=== PATIENT | female | born 1940 | race Caucasian/White ===

== ENCOUNTER → 2019-06-10 | Emergency (ER) | payer MEDICARE, BC, OTHER | LOC: ER FS 14:01 ==

== ENCOUNTER 2020-08-05 09:01 | Emergency (ER) | payer MEDICARE ==
[~2020-08-05] VITALS: Ht 160 cm; Wt 104.3 kg
[~2020-08-05 09:01] MED LIST: AMLO-251; APIX5TAB; ATOR20TA66; CHLO10CA6; LOSA100T3; LOSA100T57; METO100T12; SIMV40TA25; SPIR25TA5
--- NOTE | 2020-08-05 09:19 | ED General ---
General Chief Complaint: Trauma-Non Activation Stated Complaint: FALL Source of Information: Patient, EMS Exam Limitations: No Limitations History of Present Illness Date Seen by Provider: Aug 05, 2020 Time Seen by Provider: 09:10 Initial Comments Patient is a 79-year-old female who presents to the emergency department today with a chief complaint of fall and hitting her head. Patient was stepping up on a stepstool to pull some curtains back when she stepped backwards and fell 1 step off of a small step ladder. She fell onto a carpeted floor and hit her head. Patient denies any loss of consciousness. She states that she got a little dizzy and nauseated when the paramedics got her up and onto the stretcher. She denies any vision changes or hearing changes at this time, no numbness, weakness or tingling on any of her extremities. She did not injure her neck and complains of no neck pain. All other review of systems reviewed and negative except as stated. Timing/Duration: 1/2 Hour Severity: Mild Allergies and Home Medications Allergies Coded Allergies: Sulfa (Sulfonamide Antibiotics) (Verified Allergy, Unknown, rash, 06/10/19) atorvastatin (Verified Allergy, Unknown, muscle pain, 06/10/19) baclofen (Verified Allergy, Unknown, delirium, 06/10/19) hydrochlorothiazide (Verified Allergy, Unknown, rash, 06/10/19) raloxifene (Verified Allergy, Unknown, swelling, 06/10/19) Patient Home Medication List Home Medication List Reviewed: Yes Review of Systems Review of Systems Constitutional: dizziness (Resolved) EENTM: no symptoms reported Respiratory: no symptoms reported Cardiovascular: no symptoms reported Gastrointestinal: no symptoms reported Genitourinary: no symptoms reported Musculoskeletal: no symptoms reported Skin: no symptoms reported Psychiatric/Neurological: No Symptoms Reported; Denies Headache, Denies Paresthesia, Denies Weakness All Other Systems Reviewed Negative Unless Noted: Yes Past Ufxopzc-Xheyrx-Ylruhe Hx Patient Social History 2nd Hand Smoke Exposure: No Past Medical History Eye Surgery, Pacemaker Respiratory: Yes Sleep Apnea Cardiac: Yes High Cholesterol, Hypertension Neurological: No Genitourinary: No Gastrointestinal: No Musculoskeletal: No Endocrine: No HEENT: Yes Cataract Cancer: No Psychosocial: No Integumentary: No Blood Disorders: No Physical Exam Vital Signs Vital Signs - First Documented 08/05/20 09:10 Temp 37.1 Pulse 72 Resp 18 B/P (MAP) 166/72 (103) Pulse Ox 99 O2 Delivery Room Air Capillary Refill : Height, Weight, BMI Height: '" Weight: lbs. oz. kg; 42.00 BMI Method: General Appearance: No Apparent Distress, WD/WN Eyes: Bilateral Eye Normal Inspection, Bilateral Eye PERRL, Bilateral Eye EOMI HEENT: PERRL/EOMI, TMs Normal, Pharynx Normal, Other (swelling bilateral ear canals - pre-existing; tendernesss to palpation posterior scalp) Neck: Full Range of Motion, Normal Inspection, Non Tender, Supple Respiratory: Chest Non Tender, Lungs Clear, Normal Breath Sounds, No Accessory Muscle Use, No Respiratory Distress Cardiovascular: Regular Rate, Rhythm Gastrointestinal: Normal Bowel Sounds, Non Tender, Soft Back: Normal Inspection Extremity: Normal Inspection, Normal Range of Motion, Non Tender Neurologic/Psychiatric: Alert, Oriented x3, No Motor/Sensory Deficits, Normal Mood/Affect, roving teller II-XII Norm as Tested Skin: Normal Color, Warm/Dry Progress/Results/Core Measures Suspected Sepsis SIRS Temperature: Pulse: Respiratory Rate: Blood Pressure / Mean: Results/Orders My Orders Orders - TOMMY HUANG MD Ct Head Wo (08/05/20 09:13) Vital Signs/I&O 08/05/20 09:10 Temp 37.1 Pulse 72 Resp 18 B/P (MAP) 166/72 (103) Pulse Ox 99 O2 Delivery Room Air Capillary Refill : Progress Note : Time: 09:18 Progress Note 79-year-old female anticoagulated on Xarelto with a mechanical trip and fall, f alling backwards onto her back and head. No loss of consciousness. Patient is awake alert and oriented with no obvious focal neuro deficits. CT scan of the head is pending at this time. 0958 CT Head WNL, no evidence of intracranial abnormality. Patient will be discharged to home with head injury precautions. She verbalizes understanding. All questions are sought and answered. She will be discharged home. Diagnostic Imaging Diagonstic Imaging: CT Plain Films/CT/US/NM/MRI: head Comments [facility], [place] NAME: STEPHAN WESTFALL [facility] REC#: [id number] PT STATUS: REG ER : 1940 PHYSICIAN: TOMMY HUANG MD ADMIT DATE: 08/05/20/ER FS Signed Date of Exam:08/05/20 CT HEAD WO PROCEDURE: CT head without contrast. TECHNIQUE: Multiple contiguous axial images were obtained through the brain without the use of intravenous contrast. Auto Exposure Controls were utilized during the CT exam to meet ALARA standards for radiation dose reduction. INDICATION: Fell off step stool, hit back of the head. Patient is on blood thinners, reports dizziness and nausea. FINDINGS: Noncontrast CT scan of the head demonstrates no mass effect, midline shift, hemorrhage or extra-axial fluid collection. Mcgregor-white matter differentiation is normal. The ventricles, cortical sulci and basilar cisterns appear normal. No fractures are present. No fluid is seen in the mastoid air cells or the visualized portions of paranasal sinuses. IMPRESSION: Normal CT scan of the head. Dictated by: Dictated on workstation # [id number] Dict: 08/05/2038 Trans: 08/05/2045 [facility] [id number] Interpreted by: CARMELITA WARD MD Electronically signed by: CARMELITA WARD MD 08/05/20 0945 Departure Impression Primary Impression: Closed head injury Qualified Codes: S09.90XA - Unspecified injury of head, initial encounter Disposition: 01 HOME, SELF-CARE Condition: Stable Departure-Patient Inst. Decision time for Depature: 10:00 Patient Instructions: Minor Head Injury Add. Discharge Instructions: Use tylenol as needed for aches and pains. If you have any severe headache, vomiting, vision changes or other emergent, concerning symptoms, please come back to the Emergency Department for re- evaluation. All discharge instructions reviewed with patient and/or family. Voiced understanding. TOMMY HUANG MD Aug 05, 2020 09:19
--- NOTE | 2020-08-05 09:43 | Diagnostic Imaging Report ---
PROCEDURE: CT head without contrast. TECHNIQUE: Multiple contiguous axial images were obtained through the brain without the use of intravenous contrast. Auto Exposure Controls were utilized during the CT exam to meet ALARA standards for radiation dose reduction. INDICATION: Fell off step stool, hit back of the head. Patient is on blood thinners, reports dizziness and nausea. FINDINGS: Noncontrast CT scan of the head demonstrates no mass effect, midline shift, hemorrhage or extra-axial fluid collection. Mcgregor-white matter differentiation is normal. The ventricles, cortical sulci and basilar cisterns appear normal. No fractures are present. No fluid is seen in the mastoid air cells or the visualized portions of paranasal sinuses. IMPRESSION: Normal CT scan of the head. Dictated by: Dictated on workstation # [id number]
[2020-08-05 10:11] VITALS: BP 144/67
== END 2020-08-05 10:10 | disposition home or self-care (01) ==
LOC: EDUNIT# 09:01 → ER FS 09:02
DX: S09.90XA Unspecified injury of head, initial encounter (principal); Z95.0 Presence of cardiac pacemaker; Z88.2 Allergy status to sulfonamides; Z88.8 Allergy status to other drugs, medicaments and biological substances; W18.39XA Other fall on same level, initial encounter; W22.8XXA Striking against or struck by other objects, initial encounter
CPT/HCPCS: 70450

== ENCOUNTER 2021-05-06 17:27 | Emergency (ER) | payer MEDICARE ==
--- NOTE | 2021-05-06 18:06 | ED Fall/Injury ---
General Chief Complaint: Trauma-Non Activation Stated Complaint: FELL,HIT HEAD,BACK PAIN Source: patient Exam Limitations: no limitations (FERN MCKINNON MED STUDENT) History of Present Illness Date Seen by Provider: May 06, 2021 Time Seen by Provider: 17:50 Initial Comments Kirsten Sosa is a 80yo F with PMH of arrhythmia who presents with CC of fall. She states that she was descending her stairs but missed the bottom step approximately an hour prior to presentation. She twisted in an attempt to catch herself but fell backwards, landing on the concrete floor. The impact was primarily to her occiput and upper back. She currently endorses back pain that is located in the right scapula primarily, which is aggravated with palpation. She did not lose consciousness and denies chest pain, SOB, changes in vision, or lightheadedness at the time of fall. She is currently on xarelto, and so was advised to come to the ED. Occurred: this afternoon Severity: mild Injuries/Pain Location: head, back Context: other (Missed step) Loss of Consciousness: no loss of consciousness Associated Symptoms (Fall): Denies Symptoms (FERN MCKINNON MED STUDENT) Allergies and Home Medications Allergies Coded Allergies: Sulfa (Sulfonamide Antibiotics) (Verified Allergy, Unknown, rash, 06/10/19) atorvastatin (Verified Allergy, Unknown, muscle pain, 06/10/19) baclofen (Verified Allergy, Unknown, delirium, 06/10/19) hydrochlorothiazide (Verified Allergy, Unknown, rash, 06/10/19) raloxifene (Verified Allergy, Unknown, swelling, 06/10/19) Patient Home Medication List Home Medication List Reviewed: Yes (ISIDRO POPE MD) Review of Systems Review of Systems Constitutional: no symptoms reported Eyes: No Symptoms Reported Ears, Nose, Mouth, Throat: no symptoms reported Respiratory: no symptoms reported Cardiovascular: no symptoms reported Gastrointestinal: no symptoms reported Genitourinary: no symptoms reported : No Musculoskeletal: back pain (Right upper torso, lateral); No neck pain Skin: no symptoms reported Psychiatric/Neurological: No Symptoms Reported (FERN MCKINNON,LUCILLE STUDENT) Past Uekjcly-Cnhsau-Whdqwr Hx Past Medical History Eye Surgery, Pacemaker Respiratory: Yes Sleep Apnea Cardiac: Yes (pacemaker) High Cholesterol, Hypertension Neurological: No Genitourinary: No Gastrointestinal: No Musculoskeletal: No Endocrine: No HEENT: Yes Cataract Cancer: No Psychosocial: No Integumentary: No Blood Disorders: No (FERN MCKINNON,MED STUDENT) Physical Exam Vital Signs Vital Signs - First Documented 05/06/21 17:33 Temp 36.8 Pulse 71 Resp 16 B/P (MAP) 131/60 (83) Pulse Ox 97 O2 Delivery Room Air (ISIDRO POPE MD) Vital Signs Capillary Refill : (FERN MCKINNON,MED STUDENT) Height, Weight, BMI Height: '" Weight: lbs. oz. kg; 40.00 BMI Method: General Appearance: WD/WN, no apparent distress HEENT: PERRL/EOMI, normal ENT inspection Neck: non-tender, full range of motion, normal inspection Cardiovascular: normal peripheral pulses, regular rate, rhythm Respiratory: lungs clear, normal breath sounds, no respiratory distress Gastrointestinal: non tender, soft Back: no vertebral tenderness, other (Tenderness to palpation over right upper posterior torso) Extremities: normal range of motion Neurologic/Psychiatric: alert, normal mood/affect, oriented x 3 Skin: normal color, warm/dry (FERN MCKINNON,MED STUDENT) Archie Coma Score Best Eye Response: (4) Open Spontaneously Best Verbal Response: (5) Oriented Best Motor Response: (6) Obeys Commands Archie Total: 15 (FERN MCKINNON,MED STUDENT) Progress/Results/Core Measures Results/Orders My Orders Orders - ISIDRO POPE MD Ct Head Wo (05/06/21 17:50) Ekg Tracing (05/06/21 18:07) (ISIDRO POPE MD) Vital Signs/I&O 05/06/21 05/06/21 17:33 19:10 Temp 36.8 36.8 Pulse 71 72 Resp 16 16 B/P (MAP) 131/60 (83) 137/61 (83) Pulse Ox 97 98 O2 Delivery Room Air Room Air (ISIDRO POPE MD) Progress Progress Note : Progress Note Patient denied loss of consciousness or symptoms of concussion. She presented to the ER because she is on Xarelto. She complained of no neck pain or tenderness. She did have some pain in the mid back to the right of the spine. There was no vertebral tenderness. She denied any pain with inspiration. Tenderness seem to be in the musculature. CT of the head was unremarkable. She was discharged home with precautions. Patient denied any prodrome prior to the fall and stated it was merely mechanical. (ISIDRO POPE MD) Diagnostic Imaging Diagonstic Imaging: CT Plain Films/CT/US/NM/MRI: head Comments NAME: KIRSTEN SOSA [facility] REC#: [id number] PT STATUS: REG ER : 1940 PHYSICIAN: ISIDRO POPE MD ADMIT DATE: 05/06/21/ER FS Draft Date of Exam:05/06/21 CT HEAD WO INDICATION: Fall with trauma to the head. Anticoagulated patient. Head pain. TECHNIQUE: Routine non contrast-enhanced axial images were obtained from the skull base to the vertex. Auto Exposure Controls were utilized during the CT exam to meet ALARA standards for radiation dose reduction COMPARISON: 08/05/2020 FINDINGS: The ventricles and cortical sulci are stable in size and contour. There are confluent areas of abnormal, low attenuation in the periventricular white matter. This is consistent with chronic small vessel ischemic changes. There is no midline shift or mass-effect. No acute intra-axial hemorrhage is seen. There are no abnormal areas of increased or decreased density to suggest acute hemorrhage or edema. No extra-axial masses or collections are present. The bony calvarium is intact. The visualized paranasal sinuses are unremarkable. The mastoid air cells are partially opacified on the right. IMPRESSION: 1. No acute intracranial abnormality. No CT evidence of mass, acute infarct or intracranial hemorrhage. 2. Background chronic small vessel ischemic changes in the deep white matter. Dictated on workstation # [id number] Dict: 05/06/21 1809 Trans: 05/06/21 1812 [facility] [id number] Interpreted by: JUNIE ELLISON MD (ISIDRO POPE MD) Departure Impression Primary Impression: Fall down stairs Qualified Codes: W10.8XXA - Fall (on) (from) other stairs and steps, initial encounter Additional Impressions: Closed head injury Qualified Codes: S09.90XA - Unspecified injury of head, initial encounter Anticoagulated Disposition: HOME, SELF-CARE Condition: Stable Departure-Patient Inst. Referrals: SEAN SHAW MD (PCP/Family) Primary Care Physician Patient Instructions: Going Home on Blood Thinners Add. Discharge Instructions: Call with any questions or concerns. Return to the ER or call 911 if you have any symptoms develop related to your head injury including nausea, worsening headache, confusion, changes in vision, numbness or weakness of any part of your body, etc. All discharge instructions reviewed with patient and/or family. Voiced understanding. Medical Student Attestation and Attending Note: I have personally interviewed and examined this patient along with Christopher Mckinnon, MS 4. I have reviewed student documentation including history, physical, and assessments. I agree with the documentation except where otherwise noted. Exam: General: Alert, oriented, no acute distress, well developed HEENT: Normocephalic and atraumatic Neck: Nontender, normal to inspection Heart: Regular rate and rhythm without murmur Lungs: Clear to auscultation bilaterally with normal effort Back: Tenderness in the musculature to the right of the thoracic spine. No vertebral tenderness. Neuropsych: Alert, oriented, no focal deficits Skin: Warm and dry without rashes (ISIDRO POPE MD) Copy Copies To 1: SELF,FERN MCDOWELL MD,MED STUDENT May 06, 2021 18:06 ISIDRO POPE MD May 06, 2021 18:43
--- NOTE | 2021-05-06 18:13 | Diagnostic Imaging Report ---
INDICATION: Fall with trauma to the head. Anticoagulated patient. Head pain. TECHNIQUE: Routine non contrast-enhanced axial images were obtained from the skull base to the vertex. Auto Exposure Controls were utilized during the CT exam to meet ALARA standards for radiation dose reduction COMPARISON: 08/05/2020 FINDINGS: The ventricles and cortical sulci are stable in size and contour. There are confluent areas of abnormal, low attenuation in the periventricular white matter. This is consistent with chronic small vessel ischemic changes. There is no midline shift or mass-effect. No acute intra-axial hemorrhage is seen. There are no abnormal areas of increased or decreased density to suggest acute hemorrhage or edema. No extra-axial masses or collections are present. The bony calvarium is intact. The visualized paranasal sinuses are unremarkable. The mastoid air cells are partially opacified on the right. IMPRESSION: 1. No acute intracranial abnormality. No CT evidence of mass, acute infarct or intracranial hemorrhage. 2. Background chronic small vessel ischemic changes in the deep white matter. Dictated by: Dictated on workstation # [id number]
[2021-05-06] MEDS ORDERED: NITROGLYCERIN 0.4 MG SL TABS BTL 25'S SL PRN (18:15)
[2021-05-06] MEDS ORDERED: ASPIRIN 81 MG CHEW (CHILDREN'S ASA) PO ONE (18:15)
[2021-05-06 19:10] VITALS: BP 137/61
== END 2021-05-06 19:10 | disposition home or self-care (01) ==
LOC: EDUNIT# 17:27 → ER FS 17:29
DX: S09.90XA Unspecified injury of head, initial encounter (principal); G47.30 Sleep apnea, unspecified; I10 Essential (primary) hypertension; R40.2410 Glasgow coma scale score 13-15, unspecified time; Z79.01 Long term (current) use of anticoagulants; W10.8XXA Fall (on) (from) other stairs and steps, initial encounter
CPT/HCPCS: 70450